=== PATIENT | female | born 1935 | race Asian ===

== ENCOUNTER 2018-11-13 20:11 | Inpatient (IN) | payer MEDICARE, BC ==
[~2018-11-13] VITALS: Ht 152.4 cm; Wt 36.3 kg
[2018-11-13] MEDS ORDERED: IV NORMAL SALINE 500 ML BAG IV ONE (20:15)
--- NOTE | 2018-11-13 20:30 | NUR ---
Patient bib pvt ambulance from [facility] for fever and weakness. Alert but nonverbal, verbalizes only when feeling pain. Respiratory even and unlabored, no cough no sob. No cardiovascular distress noted. Patient in bed at lowest position, sr upx2, call light within reach. Fall precautions implemented per protocol.
[2018-11-13 20:42] LABS: BASOPHILS % (AUTO) 0.3 % (0.0-2.0); EOSINOPHILS % (AUTO) 0.2 % (0.0-7.0); HEMATOCRIT 30.2 % (31.2-41.9); HEMOGLOBIN 10.2 g/dL (10.9-14.3); LYMPHOCYTES # (AUTO) 1.2 K/uL (20.0-40.0); LYMPHOCYTES % (AUTO) 13.1 % (20.5-51.5); MEAN CORPUSCULAR HEMOGLOBIN 30.4 uug (24.7-32.8); MEAN CORPUSCULAR HGB CONC 34 g/dL (32.3-35.6); MEAN CORPUSCULAR VOLUME 90.3 fL (75.5-95.3); MONOCYTES % (AUTO) 10.6 % (0.0-11.0); NEUTROPHILS # (AUTO) 6.9 K/uL (1.8-8.9); NEUTROPHILS % (AUTO) 75.8 % (38.5-71.5); PLATELET COUNT (AUTO) 235 K/uL (179-408); RED BLOOD CELL COUNT(AUTO) 3.35 MIL/uL (3.63-4.92); WHITE BLOOD COUNT (AUTO) 9.1 K/uL (3.8-11.8)
[2018-11-13 20:49] LABS: ALANINE AMINOTRANSFERASE 9 U/L (14-59); ALKALINE PHOSPHATASE 105 U/L (50-136); ASPARTATE AMINOTRANSFERASE 16 U/L (15-37); BILIRUBIN,DIRECT 0.4 mg/dL (0.0-0.2); BILIRUBIN,TOTAL 0.6 mg/dL (0.2-1.0); CARBON DIOXIDE 22 mmol/L (21-32); CHLORIDE 121 mmol/L (98-107); CREATININE 2.9 mg/dL (0.6-1.3); GLUCOSE 113 mg/dL (74-106); TOTAL PROTEIN, SERUM 7.9 g/dL (6.4-8.2); UREA NITROGEN, BLOOD 71 mg/dL (7-18)
[2018-11-13 20:57] LABS: *BILIRUBIN,URIN 1+ (NEGATIVE); *BLOOD, URINE 2+ (NEGATIVE); *CLARITY,URINE CLOUDY (CLEAR); *KETONES,URINE TRACE (NEGATIVE); LEUKOCYTE ESTERASE ,URINE 2+ (NEGATIVE); NITRITE, URINE NEGATIVE (NEGATIVE); PH,URINE 5.5 (5.0-8.0); UGLUCOSE NEGATIVE (NEGATIVE)
[2018-11-13 21:05] LABS: *COLOR,URINE YELLOW (YELLOW)
[2018-11-13 21:10] LABS: WBC,URINE 80-100 /HPF (0-3)
[2018-11-13 21:11] LABS: MUCUS,URINE MODERATE /LPF (0-FEW); SQUAMOUS EPITHELIAL CELL,UR MODERATE /HPF (NONE SEEN); URINE AMORPHOUS URATE MODERATE /HPF
[2018-11-13 21:18] LABS: BAND % (MANUAL) 7 % (0-10); LYMPHOCYTES % (MANUAL) 15 % (20-40); MONOCYTES % (MANUAL) 10 % (2-10); NEUTROPHILS % (MANUAL) 68 % (42-75)
[2018-11-13] MEDS ORDERED: CEFTRIAXONE 1 G in IV DEXTROSE 5% 50 ML IV ONE (21:30)
[2018-11-13] MEDS ORDERED: CEFTRIAXONE 1 G VIAL ONE (21:33)
[2018-11-13] MEDS ORDERED: LORA10TA7 PO (21:35)
[2018-11-13] MEDS ORDERED: ACET-73 PO (21:35)
[2018-11-13] MEDS ORDERED: LISI40TA4 PO (21:35)
[2018-11-13] MEDS ORDERED: INSU100V11 SUBCUT (21:35)
[2018-11-13] MEDS ORDERED: ASPI-605 PO (21:35)
[2018-11-13] MEDS ORDERED: DONE10TA44 PO (21:35)
[2018-11-13] MEDS ORDERED: UBIQUINOL PO (21:35)
[2018-11-13] MEDS ORDERED: [UNRECOGNIZED DRUG - OTHER] PO (21:35)
[2018-11-13] MEDS ORDERED: B-COMPLEX PO (21:35)
[2018-11-13] MEDS ORDERED: GEMF600T5 PO (21:35)
[2018-11-13] MEDS ORDERED: AMLO5TAB9 PO (21:35)
[2018-11-13] MEDS ORDERED: [UNRECOGNIZED DRUG - MIXTURE] PO (21:35)
[2018-11-13] MEDS ORDERED: METF-440 PO (21:35)
[2018-11-13] MEDS ORDERED: GINSENG PO (21:35)
[2018-11-13] MEDS ORDERED: [UNRECOGNIZED DRUG - OTHER] PO (21:35)
[2018-11-13] MEDS ORDERED: [UNRECOGNIZED DRUG - OTHER] PO (21:35)
--- NOTE | 2018-11-13 22:20 | NUR ---
Report given to BRANDON Brand.
--- NOTE | 2018-11-13 22:25 | NUR ---
PATIENT RECEIVED VIA GURNEY BY ER. ACCOMPNIED BY DAUGHTER . PATIENT IS SLEEPING AT THIS TIME. IV SITE ON RIGHT HAND , INTACT AND PATENT .VS STABLE, SKIN CHECK DONE, NOTED WITH REDNESS IN SACRAL AREA, TOOK PICTURE AND PLACED IN CHART, PLACED MEPILEX. PATIENT IS UNABLE TO VERBALIZE MEDICAL HISTORY DUE TO DEMNTIA, PER DAUGHTER IS SOMETIMES NON VERBAL. FALL PRECAUTION OBSERVED, BED ALARM ON , BED IN LOCK POSITION, WITH SIDE RAILS UP X 2. BELONGINGS LIST CHECKD AND PLACED IN CHART, ORIENTED TO ROOM, BUT UNABLE TO COMPREHEND. CALL LIGHT WITHIN REACH. PATIENT IS IN NO APPARENT DISTRESS.
--- NOTE | 2018-11-13 22:29 | NUR ---
Patient transported to [place] in stable condition.
[2018-11-13 23:08] VITALS: BP 118/53
[2018-11-14 05:23] VITALS: BP 109/45
[2018-11-14 06:44] LABS: BASOPHILS % (AUTO) 0.3 % (0.0-2.0); EOSINOPHILS % (AUTO) 0.4 % (0.0-7.0); HEMATOCRIT 27.9 % (31.2-41.9); HEMOGLOBIN 9.3 g/dL (10.9-14.3); LYMPHOCYTES % (AUTO) 11.7 % (20.5-51.5); MEAN CORPUSCULAR HEMOGLOBIN 30.7 uug (24.7-32.8); MEAN CORPUSCULAR HGB CONC 34 g/dL (32.3-35.6); MEAN CORPUSCULAR VOLUME 91.7 fL (75.5-95.3); MONOCYTES # (AUTO) 0.8 K/uL (2.0-10.0); MONOCYTES % (AUTO) 10.1 % (0.0-11.0); NEUTROPHILS # (AUTO) 6.4 K/uL (1.8-8.9); NEUTROPHILS % (AUTO) 77.5 % (38.5-71.5); PLATELET COUNT (AUTO) 174 K/uL (179-408); RED BLOOD CELL COUNT(AUTO) 3.04 MIL/uL (3.63-4.92); WHITE BLOOD COUNT (AUTO) 8.3 K/uL (3.8-11.8)
[2018-11-14 06:48] LABS: CARBON DIOXIDE 19 mmol/L (21-32); CHLORIDE 123 mmol/L (98-107); CREATININE 2.3 mg/dL (0.6-1.3); GLUCOSE 85 mg/dL (74-106); POTASSIUM 4.6 mmol/L (3.5-5.1); UREA NITROGEN, BLOOD 65 mg/dL (7-18)
--- NOTE | 2018-11-14 07:00 | NUR ---
PATIENT SLEPT WELL LAST NIGHT, FALL PREUATIONS OBSERVED , BED ALARM ON, BED LOCKED IN POSITION, SIDE RAILS UP. VS STABLE REMAINS AFEBRILE. IV PATNET AND INTACT. PATIENT IS IN NO DISTRESS AT THIS TIME. LAB CALLED REGARDING [facility] CALLED MD GONZALEZ @0617 , AWAITING CALL BACK ENDORSED TO AM SHIFT.
--- NOTE | 2018-11-14 07:15 | NUR ---
patient in Bed, Alert and Oriented x 1, No signs of Respiratory distress noted. No SOB. No complain of Pain or Discomfort noted. kept the call light within easy reach. kept the bed in lowest position. Will continue to monitor.
--- NOTE | 2018-11-14 08:00 | NUR ---
0900 Called [facility] Nephrology, Spoke with Alison and relayed Elevated Sodium level of 157, she said she will page Dr. Wall, awaiting for Call back.
[2018-11-14] MEDS ORDERED: METFORMIN HCL 500 MG TABLET PO SCH (09:15)
[2018-11-14] MEDS ORDERED: LORATADINE 10 MG TABLET PO SCH (09:15)
[2018-11-14] MEDS ORDERED: ACETAMINOPHEN ES 500 MG TABLET PO PRN ×2 (09:15→11:30)
[2018-11-14] MEDS ORDERED: INSULIN LISPRO 300 UNIT/3 ML VIAL SQ PRN (09:15)
[2018-11-14] MEDS ORDERED: DONEPEZIL 10 MG TABLET PO SCH (09:15)
[2018-11-14] MEDS ORDERED: LISINOPRIL 20 MG TABLET PO SCH (09:15)
[2018-11-14] MEDS: ASPIRIN EC 81 MG TABLET.DR PO SCH (09:36)
[2018-11-14] MEDS: AMLODIPINE 5 MG TABLET PO SCH (09:37)
[2018-11-14] MEDS: GEMFIBROZIL 600 MG TABLET PO SCH ×2 (09:37→17:05)
[2018-11-14] MEDS ORDERED: IV 1/2NS 1000 ML 1,000 ML IV ONE (11:15)
[2018-11-14] MEDS ORDERED: DEXTROSE 50% 50 ML DISP.SYRIN IV PRN (11:15)
[2018-11-14 11:26] VITALS: BP 124/46
[2018-11-14] MEDS: BLOOD SUGAR DIAGNOSTIC 1 EACH STRIP VI SCH ×3 (12:17→20:27)
[2018-11-14] MEDS: DONEPEZIL 10 MG TABLET PO SCH (12:24)
[2018-11-14] MEDS ORDERED: [UNRECOGNIZED DRUG - OTHER] PO SCH (13:00)
[2018-11-14 15:09] VITALS: BP 109/45
[2018-11-14] MEDS: INSULIN REGULAR, HUMAN 300 UNIT/3 ML VIAL SQ PRN ×2 (17:19→20:30)
--- NOTE | 2018-11-14 18:33 | NUR ---
Patient in Bed, awake and verbally responsive. No signs of Respiratory distress noted. No SOB. No complain of Pain or Discomfort. ON IVF 0.45% Nacl running at 100cc/hr. Right hand IV site intact. No signs of Infiltration noted. All needs attended and met. No signs of Hyper/hypoglycemia. Will endorse to Oncoming Nurse.
--- NOTE | 2018-11-14 19:47 | NUR ---
Received asleep in bed, arousable. Not in any form of distress. No complaints at the moment. Noted with IV access on the right hand to ongoing IV fluid, infusing well. Noted DVT pumps in place. Bed in low position, locked, side rails up x2 for safety, bed alarm on. Noise and lights subdued. Will continue to monitor.
[2018-11-14 20:00] VITALS: BP 125/54
[2018-11-14] MEDS: VITAMIN B COMPLEX 1 TABLET PO SCH (20:27)
[2018-11-14] MEDS ORDERED: CEFTRIAXONE 1 G in IV DEXTROSE 5% 50 ML IV SCH (21:00)
[2018-11-14] MEDS ORDERED: Z GUARD REMEDY PASTE 57 GM TUBE TOP PRN (21:45)
--- NOTE | 2018-11-14 23:09 | NUR ---
Noted IV fluid order is 1/2NS1L at 100mls/hr ONCE, called and spoke with Dr. Sheets to verify if IV fluids should be continued or not. Per Dr. Sheets, hold for now and verify in the morning with vp of digital marketing if they want to continue the IV fluids.
[2018-11-15 05:03] VITALS: BP 131/61
--- NOTE | 2018-11-15 05:36 | NUR ---
Patient slept intermittently throughout the night, no complaints were made, no distress noted. Attended all needs. Ensured safety and comfort. Noted patient legally blind, both eyes. Ordered air mattress for patient. DVT pumps maintained. Will endorse to morning shift nurse to follow up regarding patient IV fluids.
[2018-11-15] MEDS: BLOOD SUGAR DIAGNOSTIC 1 EACH STRIP VI SCH ×4 (06:31→20:53)
[2018-11-15 06:40] LABS: CARBON DIOXIDE 21 mmol/L (21-32); CHLORIDE 120 mmol/L (98-107); CREATININE 1.6 mg/dL (0.6-1.3); GLUCOSE 102 mg/dL (74-106); MAGNESIUM 2.1 mg/dL (1.8-2.4); UREA NITROGEN, BLOOD 41 mg/dL (7-18)
[2018-11-15 06:51] LABS: EOSINOPHILS # (AUTO) 0.1 K/uL (0.0-0.7); EOSINOPHILS % (AUTO) 0.9 % (0.0-7.0); LYMPHOCYTES % (AUTO) 8.3 % (20.5-51.5); MEAN CORPUSCULAR HEMOGLOBIN 30.9 uug (24.7-32.8); MONOCYTES # (AUTO) 0.6 K/uL (2.0-10.0); WHITE BLOOD COUNT (AUTO) 10.2 K/uL (3.8-11.8)
[2018-11-15 07:01] LABS: BASOPHILS % (AUTO) 0.2 % (0.0-2.0); LYMPHOCYTES # (AUTO) 0.8 K/uL (20.0-40.0); MEAN CORPUSCULAR HGB CONC 33 g/dL (32.3-35.6); MEAN CORPUSCULAR VOLUME 93.5 fL (75.5-95.3); MONOCYTES % (AUTO) 5.6 % (0.0-11.0); NEUTROPHILS # (AUTO) 8.6 K/uL (1.8-8.9); PLATELET COUNT (AUTO) 198 K/uL (179-408); RED BLOOD CELL COUNT(AUTO) 3.28 MIL/uL (3.63-4.92)
[2018-11-15 07:03] LABS: HEMATOCRIT 30.7 % (31.2-41.9); HEMOGLOBIN 10.2 g/dL (10.9-14.3)
--- NOTE | 2018-11-15 07:15 | NUR ---
Patient in bed, awake and responsive. No signs of respiratory distress noted. No SOB. No complain of Pain or discomfort. kept the call light within reach.All needs attended and met. Will continue to monitor.
[2018-11-15] MEDS: GEMFIBROZIL 600 MG TABLET PO SCH ×2 (08:22→17:17)
[2018-11-15] MEDS: DONEPEZIL 10 MG TABLET PO SCH (08:22)
[2018-11-15] MEDS: ASPIRIN EC 81 MG TABLET.DR PO SCH (08:22)
[2018-11-15] MEDS: AMLODIPINE 5 MG TABLET PO SCH (08:22)
[2018-11-15] MEDS ORDERED: [UNRECOGNIZED DRUG - MIXTURE] PO SCH (09:00)
[2018-11-15] MEDS ORDERED: [UNRECOGNIZED DRUG - OTHER] PO SCH (09:00)
[2018-11-15] MEDS ORDERED: UBIQUINOL PO SCH (09:00)
[2018-11-15] MEDS ORDERED: GINSENG PO SCH (09:00)
[2018-11-15] MEDS ORDERED: [UNRECOGNIZED DRUG - OTHER] PO SCH (09:00)
[2018-11-15] MEDS ORDERED: LORATADINE 10 MG TABLET PO SCH (09:00)
[2018-11-15] MEDS ORDERED: IV 1/2NS 1000 ML 1,000 ML IV ONE (11:30)
[2018-11-15] MEDS ORDERED: LEVOFLOXACIN 250MG /D5W 250 MG in PREMIXED 1 EACH IV SCH ×2 (11:30→12:00)
[2018-11-15 12:01] VITALS: BP 103/40
[2018-11-15] MEDS: INSULIN REGULAR, HUMAN 300 UNIT/3 ML VIAL SQ PRN ×2 (12:18→20:55)
[2018-11-15 15:33] VITALS: BP 126/46
--- NOTE | 2018-11-15 18:23 | NUR ---
Patient in bed, awake and responsive. No signs of respiratory distress noted. No SOB. No complain of Pain or discomfort. IVF infusing well at Right hand, No signs of Infiltration noted. kept clean and comfortable. kept the call light within easy reach. Will Endorse to oncoming Nurse.
--- NOTE | 2018-11-15 19:40 | NUR ---
Received patient awake in bed. Not in any form of distress. No complaints at the moment. Noted IV access on right hand, infiltrated, removed. Noted air mattress in place. Noted DVT pumps in place. Bed in low position, locked, side rails up x2 for safety, bed alarm on. Noise and lights subdued. Will continue to monitor.
[2018-11-15 19:51] VITALS: BP 140/50
[2018-11-15] MEDS: VITAMIN B COMPLEX 1 TABLET PO SCH (20:53)
[2018-11-16 05:20] VITALS: BP 155/64
--- NOTE | 2018-11-16 05:34 | NUR ---
Patient slept intermittently throughout the night, no complaints were made, no distress noted. Attended all needs. Ensured safety and comfort. Noted patient legally blind, both eyes. Still with air mattress and DVT pumps in place. Noted with plans to discharge patient this AM.
[2018-11-16] MEDS: BLOOD SUGAR DIAGNOSTIC 1 EACH STRIP VI SCH ×3 (06:38→16:19)
--- NOTE | 2018-11-16 07:15 | NUR ---
Patient in Bed, awake and verbally responsive. No signs of Distress noted. No complain of Pain or Discomfort. Left FA IV site Intact. No signs of Infiltration noted. kept the call light within easy reach. will continue to monitor.
[2018-11-16 07:17] LABS: CREATININE 1.1 mg/dL (0.6-1.3); MAGNESIUM 1.7 mg/dL (1.8-2.4); PHOSPHOROUS 2.4 mg/dL (2.5-4.9); POTASSIUM 3.6 mmol/L (3.5-5.1)
[2018-11-16 07:26] LABS: BASOPHILS % (AUTO) 0.2 % (0.0-2.0); EOSINOPHILS # (AUTO) 0.1 K/uL (0.0-0.7); EOSINOPHILS % (AUTO) 0.6 % (0.0-7.0); HEMATOCRIT 31.6 % (31.2-41.9); HEMOGLOBIN 10.4 g/dL (10.9-14.3); LYMPHOCYTES # (AUTO) 0.8 K/uL (20.0-40.0); LYMPHOCYTES % (AUTO) 8.1 % (20.5-51.5); MEAN CORPUSCULAR HEMOGLOBIN 30.7 uug (24.7-32.8); MEAN CORPUSCULAR HGB CONC 33 g/dL (32.3-35.6); MEAN CORPUSCULAR VOLUME 92.9 fL (75.5-95.3); MONOCYTES # (AUTO) 0.6 K/uL (2.0-10.0); MONOCYTES % (AUTO) 5.5 % (0.0-11.0); NEUTROPHILS # (AUTO) 8.7 K/uL (1.8-8.9); NEUTROPHILS % (AUTO) 85.6 % (38.5-71.5); PLATELET COUNT (AUTO) 187 K/uL (179-408); WHITE BLOOD COUNT (AUTO) 10.2 K/uL (3.8-11.8)
[2018-11-16] MEDS: DONEPEZIL 10 MG TABLET PO SCH (08:35)
[2018-11-16] MEDS: ASPIRIN EC 81 MG TABLET.DR PO SCH (08:36)
[2018-11-16] MEDS: GEMFIBROZIL 600 MG TABLET PO SCH (08:36)
[2018-11-16] MEDS: AMLODIPINE 5 MG TABLET PO SCH (08:36)
[2018-11-16] MEDS ORDERED: MAGNESIUM OXIDE 400 MG TABLET PO ONE (11:00)
[2018-11-16 11:04] VITALS: BP 146/59
[2018-11-16 11:21] VITALS: BP 115/58
[2018-11-16] MEDS ORDERED: LEVO500T2 PO (14:28)
--- NOTE | 2018-11-16 14:56 | NUR ---
Patient with New order to be discharge to ARU, RP daughter made aware.
[2018-11-16 16:09] VITALS: BP 118/51
[2018-11-16] MEDS ORDERED: NEUTRA PHOS PACKET PO ONE (16:15)
--- NOTE | 2018-11-16 16:45 | NUR ---
Patient in bed Awake and responsive. No signs of Respiratory distress noted. No SOB. No complain of Pain or Discomfort. Blood sugar is 156 at 1630, Supplement Neutra Phos 2 packet was given for Phos of 2.4 and magnesium 800mg with Mg 1.7 level. Called ARU and gave report to yvan, All belongings was sent to patient. Discharged patient to ARU at room 106 at 1645
== END 2018-11-16 16:45 | DRG 682 ==
LOC: ER 20:11 → MEDSURG3 22:18
PROVIDERS: ADMIT Internal Medicine Nephrology; ATTEND Internal Medicine Nephrology
DX: N17.9 Acute kidney failure, unspecified (principal); G92 Toxic encephalopathy; N39.0 Urinary tract infection, site not specified; E87.0 Hyperosmolality and hypernatremia; E86.0 Dehydration; G30.9 Alzheimer's disease, unspecified; F02.80 Dementia in other diseases classified elsewhere, unspecified severity, without behavioral disturbance, psychotic disturbance, mood disturbance, and anxiety; H54.7 Unspecified visual loss; E11.9 Type 2 diabetes mellitus without complications; I25.10 Atherosclerotic heart disease of native coronary artery without angina pectoris; Z95.1 Presence of aortocoronary bypass graft; E78.5 Hyperlipidemia, unspecified; Z66 Do not resuscitate
CPT/HCPCS: 36415; 70030-TC; 71045; 83605; 83735; 84100; 85025; 85730; 87040; 87077; 87086; 93005; A4663; C1758; G0378; J0696; J1815; J1956; J3490; J7030; J7060

== ENCOUNTER 2018-11-16 16:54 | Inpatient (IN) | payer MEDICARE, BC ==
[~2018-11-16] VITALS: Ht 152.4 cm; Wt 36.3 kg
[~2018-11-16 16:54] MED LIST: ACET-73 PO; AMLO5TAB9 PO; ASPI-605 PO; B-COMPLEX PO; DONE10TA44 PO; GEMF600T5 PO; GINSENG PO; INSU100V11 SUBCUT; LEVO500T2 PO; LISI40TA4 PO; LORA10TA7 PO; METF-440 PO; UBIQUINOL PO; [UNRECOGNIZED DRUG - MIXTURE] PO; [UNRECOGNIZED DRUG - OTHER] PO; [UNRECOGNIZED DRUG - OTHER] PO; [UNRECOGNIZED DRUG - OTHER] PO
[2018-11-16] MEDS ORDERED: Z GUARD REMEDY PASTE 57 GM TUBE TOP PRN (17:15)
[2018-11-16 19:54] VITALS: BP 129/72
[2018-11-17 05:58] VITALS: BP 137/57
[2018-11-17 08:01] VITALS: BP 128/57
[2018-11-17] MEDS ORDERED: LEVOFLOXACIN 500 MG TABLET PO SCH (10:15)
[2018-11-17] MEDS ORDERED: LORATADINE 10 MG TABLET PO SCH (10:33)
[2018-11-17] MEDS ORDERED: DEXTROSE 50% 50 ML DISP.SYRIN IV PRN (10:45)
[2018-11-17] MEDS: BLOOD SUGAR DIAGNOSTIC 1 EACH STRIP VI SCH ×3 (11:33→22:44)
[2018-11-17] MEDS: LEVOFLOXACIN 250 MG TABLET PO SCH (11:36)
[2018-11-17] MEDS: INSULIN REGULAR, HUMAN 300 UNIT/3 ML VIAL SQ PRN ×3 (11:52→22:46)
[2018-11-17 16:48] VITALS: BP 130/54
[2018-11-17] MEDS: ACETAMINOPHEN ES 500 MG TABLET PO PRN (16:48)
[2018-11-17] MEDS ORDERED: METFORMIN HCL 500 MG TABLET PO SCH (18:00)
[2018-11-17] MEDS: GEMFIBROZIL 600 MG TABLET PO SCH (18:27)
[2018-11-17 19:36] VITALS: BP 135/59
[2018-11-18 05:53] VITALS: BP 130/53
[2018-11-18] MEDS: BLOOD SUGAR DIAGNOSTIC 1 EACH STRIP VI SCH ×4 (06:53→21:11)
[2018-11-18 08:09] VITALS: BP 119/55
[2018-11-18] MEDS: AMLODIPINE 5 MG TABLET PO SCH (09:00)
[2018-11-18] MEDS: DONEPEZIL 10 MG TABLET PO SCH (10:15)
[2018-11-18] MEDS: GEMFIBROZIL 600 MG TABLET PO SCH ×2 (10:15→17:06)
[2018-11-18] MEDS: LEVOFLOXACIN 250 MG TABLET PO SCH (10:16)
[2018-11-18] MEDS: ASPIRIN EC 81 MG TABLET.DR PO SCH (10:16)
[2018-11-18] MEDS: INSULIN REGULAR, HUMAN 300 UNIT/3 ML VIAL SQ PRN ×3 (12:38→21:12)
[2018-11-18 15:59] VITALS: BP 115/59
[2018-11-18 20:06] VITALS: BP 125/67
[2018-11-19 04:57] VITALS: BP 125/60
[2018-11-19] MEDS: BLOOD SUGAR DIAGNOSTIC 1 EACH STRIP VI SCH ×4 (06:40→20:44)
[2018-11-19 08:01] VITALS: BP 114/50
[2018-11-19] MEDS: DONEPEZIL 10 MG TABLET PO SCH (08:56)
[2018-11-19] MEDS: GEMFIBROZIL 600 MG TABLET PO SCH ×2 (08:56→17:58)
[2018-11-19] MEDS: ASPIRIN EC 81 MG TABLET.DR PO SCH (08:56)
[2018-11-19] MEDS: LEVOFLOXACIN 250 MG TABLET PO SCH (08:56)
[2018-11-19] MEDS: AMLODIPINE 5 MG TABLET PO SCH (08:56)
[2018-11-19] MEDS: INSULIN REGULAR, HUMAN 300 UNIT/3 ML VIAL SQ PRN ×3 (11:48→20:45)
[2018-11-19 16:20] VITALS: BP 113/50
[2018-11-19 20:56] VITALS: BP 121/53
[2018-11-20 05:13] VITALS: BP 135/55
[2018-11-20] MEDS: BLOOD SUGAR DIAGNOSTIC 1 EACH STRIP VI SCH ×4 (06:34→20:40)
[2018-11-20] MEDS: AMLODIPINE 5 MG TABLET PO SCH (09:30)
[2018-11-20] MEDS: GEMFIBROZIL 600 MG TABLET PO SCH ×2 (09:31→17:20)
[2018-11-20] MEDS: DONEPEZIL 10 MG TABLET PO SCH (09:31)
[2018-11-20] MEDS: ASPIRIN EC 81 MG TABLET.DR PO SCH (09:31)
[2018-11-20 09:34] VITALS: BP 114/43
[2018-11-20] MEDS: INSULIN REGULAR, HUMAN 300 UNIT/3 ML VIAL SQ PRN ×3 (12:33→20:51)
[2018-11-20 16:12] VITALS: BP 109/40
[2018-11-20 19:58] VITALS: BP 127/55
[2018-11-21 04:55] VITALS: BP 130/50
[2018-11-21] MEDS: BLOOD SUGAR DIAGNOSTIC 1 EACH STRIP VI SCH ×4 (06:34→21:14)
[2018-11-21 07:45] LABS: BASOPHILS % (AUTO) 0.4 % (0.0-2.0); EOSINOPHILS # (AUTO) 0.1 K/uL (0.0-0.7); EOSINOPHILS % (AUTO) 2.4 % (0.0-7.0); HEMATOCRIT 24.6 % (31.2-41.9); HEMOGLOBIN 8.4 g/dL (10.9-14.3); LYMPHOCYTES # (AUTO) 0.9 K/uL (20.0-40.0); LYMPHOCYTES % (AUTO) 14.8 % (20.5-51.5); MEAN CORPUSCULAR HEMOGLOBIN 31.3 uug (24.7-32.8); MEAN CORPUSCULAR HGB CONC 34 g/dL (32.3-35.6); MEAN CORPUSCULAR VOLUME 91.6 fL (75.5-95.3); MONOCYTES # (AUTO) 0.4 K/uL (2.0-10.0); MONOCYTES % (AUTO) 5.9 % (0.0-11.0); NEUTROPHILS # (AUTO) 4.7 K/uL (1.8-8.9); NEUTROPHILS % (AUTO) 76.5 % (38.5-71.5); PLATELET COUNT (AUTO) 245 K/uL (179-408); RED BLOOD CELL COUNT(AUTO) 2.69 MIL/uL (3.63-4.92); WHITE BLOOD COUNT (AUTO) 6.1 K/uL (3.8-11.8)
[2018-11-21 07:47] LABS: ALANINE AMINOTRANSFERASE < 6 U/L (14-59); ALKALINE PHOSPHATASE 82 U/L (50-136); ASPARTATE AMINOTRANSFERASE 17 U/L (15-37); BILIRUBIN,TOTAL 0.3 mg/dL (0.2-1.0); CARBON DIOXIDE 24 mmol/L (21-32); CHLORIDE 111 mmol/L (98-107); CREATININE 0.9 mg/dL (0.6-1.3); GLUCOSE 87 mg/dL (74-106); MAGNESIUM 1.8 mg/dL (1.8-2.4); PHOSPHOROUS 2.9 mg/dL (2.5-4.9); POTASSIUM 4.6 mmol/L (3.5-5.1); UREA NITROGEN, BLOOD 22 mg/dL (7-18)
[2018-11-21 08:43] VITALS: BP 129/53
[2018-11-21] MEDS: AMLODIPINE 5 MG TABLET PO SCH (09:15)
[2018-11-21] MEDS: DONEPEZIL 10 MG TABLET PO SCH (09:16)
[2018-11-21] MEDS: ASPIRIN 81 MG TAB.CHEW PO SCH (09:16)
[2018-11-21] MEDS: GEMFIBROZIL 600 MG TABLET PO SCH ×2 (09:17→17:09)
[2018-11-21] MEDS: LORATADINE 10 MG TABLET PO SCH (09:17)
[2018-11-21] MEDS: INSULIN REGULAR, HUMAN 300 UNIT/3 ML VIAL SQ PRN ×2 (11:55→17:09)
[2018-11-21 16:44] VITALS: BP 120/63
[2018-11-21 19:39] VITALS: BP 128/57
[2018-11-22 04:55] VITALS: BP 120/67
[2018-11-22] MEDS: BLOOD SUGAR DIAGNOSTIC 1 EACH STRIP VI SCH ×4 (06:09→21:41)
[2018-11-22 07:30] VITALS: BP 137/53
[2018-11-22] MEDS: GEMFIBROZIL 600 MG TABLET PO SCH ×2 (08:12→17:08)
[2018-11-22] MEDS: DONEPEZIL 10 MG TABLET PO SCH (08:13)
[2018-11-22] MEDS: ASPIRIN 81 MG TAB.CHEW PO SCH (08:13)
[2018-11-22] MEDS: AMLODIPINE 5 MG TABLET PO SCH (08:14)
[2018-11-22 09:08] LABS: BASOPHILS % (AUTO) 0.3 % (0.0-2.0); EOSINOPHILS # (AUTO) 0.1 K/uL (0.0-0.7); EOSINOPHILS % (AUTO) 1.5 % (0.0-7.0); LYMPHOCYTES # (AUTO) 0.8 K/uL (20.0-40.0); LYMPHOCYTES % (AUTO) 13.7 % (20.5-51.5); MEAN CORPUSCULAR HEMOGLOBIN 30.8 uug (24.7-32.8); MEAN CORPUSCULAR HGB CONC 34 g/dL (32.3-35.6); MEAN CORPUSCULAR VOLUME 91.5 fL (75.5-95.3); MONOCYTES # (AUTO) 0.4 K/uL (2.0-10.0); MONOCYTES % (AUTO) 7.1 % (0.0-11.0); NEUTROPHILS # (AUTO) 4.4 K/uL (1.8-8.9); NEUTROPHILS % (AUTO) 77.4 % (38.5-71.5); PLATELET COUNT (AUTO) 293 K/uL (179-408); WHITE BLOOD COUNT (AUTO) 5.7 K/uL (3.8-11.8)
[2018-11-22 09:14] LABS: IRON, SERUM 36 ug/dL (50-175)
[2018-11-22 09:21] LABS: HEMOGLOBIN 9.3 g/dL (10.9-14.3)
[2018-11-22 09:22] LABS: HEMATOCRIT 27.5 % (31.2-41.9)
[2018-11-22 09:37] LABS: FERRITIN 217 ng/mL (8-252)
[2018-11-22] MEDS: INSULIN REGULAR, HUMAN 300 UNIT/3 ML VIAL SQ PRN (11:54)
[2018-11-22 16:05] VITALS: BP 141/57
[2018-11-22 20:18] VITALS: BP 141/57
[2018-11-23 04:51] VITALS: BP 161/53
[2018-11-23] MEDS: BLOOD SUGAR DIAGNOSTIC 1 EACH STRIP VI SCH ×4 (06:54→20:15)
[2018-11-23 08:05] VITALS: BP 134/57
[2018-11-23] MEDS: DONEPEZIL 10 MG TABLET PO SCH (09:19)
[2018-11-23] MEDS: GEMFIBROZIL 600 MG TABLET PO SCH ×2 (09:19→17:48)
[2018-11-23] MEDS: LORATADINE 10 MG TABLET PO SCH (09:20)
[2018-11-23] MEDS: ASPIRIN 81 MG TAB.CHEW PO SCH (09:20)
[2018-11-23] MEDS: AMLODIPINE 5 MG TABLET PO SCH (09:21)
[2018-11-23] MEDS: INSULIN REGULAR, HUMAN 300 UNIT/3 ML VIAL SQ PRN ×2 (12:15→20:19)
[2018-11-23 15:54] VITALS: BP 138/60
[2018-11-23] MEDS: ACETAMINOPHEN ES 500 MG TABLET PO PRN (20:14)
[2018-11-23 21:08] VITALS: BP 135/57
[2018-11-24 04:56] VITALS: BP 147/49
[2018-11-24] MEDS: BLOOD SUGAR DIAGNOSTIC 1 EACH STRIP VI SCH ×4 (06:38→20:27)
[2018-11-24 08:00] VITALS: BP 137/49
[2018-11-24] MEDS: AMLODIPINE 5 MG TABLET PO SCH (08:33)
[2018-11-24] MEDS: DONEPEZIL 10 MG TABLET PO SCH (08:33)
[2018-11-24] MEDS: ASPIRIN 81 MG TAB.CHEW PO SCH (08:33)
[2018-11-24] MEDS: GEMFIBROZIL 600 MG TABLET PO SCH ×2 (08:34→17:21)
[2018-11-24] MEDS: INSULIN REGULAR, HUMAN 300 UNIT/3 ML VIAL SQ PRN ×3 (11:56→20:29)
[2018-11-24 20:02] VITALS: BP 134/57
[2018-11-24] MEDS: ACETAMINOPHEN ES 500 MG TABLET PO PRN (20:34)
[2018-11-25 05:01] VITALS: BP 154/44
[2018-11-25] MEDS: BLOOD SUGAR DIAGNOSTIC 1 EACH STRIP VI SCH ×4 (06:10→20:36)
[2018-11-25 07:30] VITALS: BP 144/54
[2018-11-25] MEDS: AMLODIPINE 5 MG TABLET PO SCH (10:26)
[2018-11-25] MEDS: DONEPEZIL 10 MG TABLET PO SCH (10:26)
[2018-11-25] MEDS: GEMFIBROZIL 600 MG TABLET PO SCH ×2 (10:26→17:42)
[2018-11-25] MEDS: LORATADINE 10 MG TABLET PO SCH (10:26)
[2018-11-25] MEDS: ASPIRIN 81 MG TAB.CHEW PO SCH (10:27)
[2018-11-25] MEDS: INSULIN REGULAR, HUMAN 300 UNIT/3 ML VIAL SQ PRN ×2 (12:26→20:39)
[2018-11-25 16:58] VITALS: BP 132/51
[2018-11-25 18:58] LABS: *OCCULT BLOOD STOOL NEGATIVE (NEGATIVE)
[2018-11-25 20:05] VITALS: BP 133/58
[2018-11-26 05:15] VITALS: BP 135/65
[2018-11-26] MEDS: BLOOD SUGAR DIAGNOSTIC 1 EACH STRIP VI SCH ×4 (06:33→20:36)
[2018-11-26 07:30] VITALS: BP 119/56
[2018-11-26] MEDS: GEMFIBROZIL 600 MG TABLET PO SCH ×2 (09:51→17:41)
[2018-11-26] MEDS: AMLODIPINE 5 MG TABLET PO SCH (09:51)
[2018-11-26] MEDS: ASPIRIN 81 MG TAB.CHEW PO SCH (09:51)
[2018-11-26] MEDS: DONEPEZIL 10 MG TABLET PO SCH (09:51)
[2018-11-26] MEDS: INSULIN REGULAR, HUMAN 300 UNIT/3 ML VIAL SQ PRN ×2 (12:45→20:37)
[2018-11-26 16:00] VITALS: BP 113/59
[2018-11-26 19:43] VITALS: BP 119/55
[2018-11-26] MEDS: ACETAMINOPHEN ES 500 MG TABLET PO PRN (20:38)
[2018-11-26 22:32] LABS: *OCCULT BLOOD STOOL NEGATIVE (NEGATIVE)
[2018-11-27 04:50] VITALS: BP 149/54
[2018-11-27] MEDS: BLOOD SUGAR DIAGNOSTIC 1 EACH STRIP VI SCH ×4 (06:33→20:17)
[2018-11-27 08:59] VITALS: BP 152/55
[2018-11-27] MEDS: DONEPEZIL 10 MG TABLET PO SCH (09:41)
[2018-11-27] MEDS: ASPIRIN 81 MG TAB.CHEW PO SCH (09:41)
[2018-11-27] MEDS: AMLODIPINE 5 MG TABLET PO SCH (09:41)
[2018-11-27] MEDS: LORATADINE 10 MG TABLET PO SCH (09:42)
[2018-11-27] MEDS: GEMFIBROZIL 600 MG TABLET PO SCH ×2 (09:42→17:34)
[2018-11-27] MEDS: INSULIN REGULAR, HUMAN 300 UNIT/3 ML VIAL SQ PRN ×3 (12:21→20:20)
[2018-11-27 16:07] VITALS: BP 123/53
[2018-11-27] MEDS: ACETAMINOPHEN ES 500 MG TABLET PO PRN (20:18)
[2018-11-27 21:06] VITALS: BP 123/60
[2018-11-28 05:13] VITALS: BP 136/66
[2018-11-28] MEDS: BLOOD SUGAR DIAGNOSTIC 1 EACH STRIP VI SCH ×4 (06:35→21:31)
[2018-11-28 07:05] LABS: BASOPHILS % (AUTO) 1.2 % (0.0-2.0); EOSINOPHILS # (AUTO) 0.1 K/uL (0.0-0.7); EOSINOPHILS % (AUTO) 2.4 % (0.0-7.0); HEMATOCRIT 25.8 % (31.2-41.9); HEMOGLOBIN 8.7 g/dL (10.9-14.3); LYMPHOCYTES # (AUTO) 0.9 K/uL (20.0-40.0); LYMPHOCYTES % (AUTO) 28.6 % (20.5-51.5); MEAN CORPUSCULAR HEMOGLOBIN 30.6 uug (24.7-32.8); MEAN CORPUSCULAR HGB CONC 34 g/dL (32.3-35.6); MEAN CORPUSCULAR VOLUME 90.6 fL (75.5-95.3); MONOCYTES # (AUTO) 0.3 K/uL (2.0-10.0); MONOCYTES % (AUTO) 8.2 % (0.0-11.0); NEUTROPHILS % (AUTO) 59.6 % (38.5-71.5); PLATELET COUNT (AUTO) 193 K/uL (179-408); RED BLOOD CELL COUNT(AUTO) 2.84 MIL/uL (3.63-4.92); WHITE BLOOD COUNT (AUTO) 3.3 K/uL (3.8-11.8)
[2018-11-28 07:16] LABS: CARBON DIOXIDE 20 mmol/L (21-32); CHLORIDE 107 mmol/L (98-107); CREATININE 0.8 mg/dL (0.6-1.3); GLUCOSE 102 mg/dL (74-106); PHOSPHOROUS 3.4 mg/dL (2.5-4.9); POTASSIUM 4.4 mmol/L (3.5-5.1); UREA NITROGEN, BLOOD 22 mg/dL (7-18)
[2018-11-28] MEDS: DONEPEZIL 10 MG TABLET PO SCH (09:55)
[2018-11-28] MEDS: GEMFIBROZIL 600 MG TABLET PO SCH ×2 (09:55→16:59)
[2018-11-28] MEDS: ASPIRIN 81 MG TAB.CHEW PO SCH (09:55)
[2018-11-28] MEDS: AMLODIPINE 5 MG TABLET PO SCH (09:57)
[2018-11-28 19:06] VITALS: BP 125/48
[2018-11-28] MEDS: ACETAMINOPHEN ES 500 MG TABLET PO PRN (21:16)
[2018-11-28] MEDS: INSULIN REGULAR, HUMAN 300 UNIT/3 ML VIAL SQ PRN (21:19)
[2018-11-28 22:07] VITALS: BP 129/59
[2018-11-29 04:20] VITALS: BP 138/55
[2018-11-29] MEDS: BLOOD SUGAR DIAGNOSTIC 1 EACH STRIP VI SCH ×4 (06:40→20:20)
[2018-11-29 07:30] VITALS: BP 119/56
[2018-11-29] MEDS: ASPIRIN 81 MG TAB.CHEW PO SCH (09:17)
[2018-11-29] MEDS: DONEPEZIL 10 MG TABLET PO SCH (09:17)
[2018-11-29] MEDS: GEMFIBROZIL 600 MG TABLET PO SCH ×2 (09:18→18:25)
[2018-11-29] MEDS: LORATADINE 10 MG TABLET PO SCH (09:18)
[2018-11-29] MEDS: AMLODIPINE 5 MG TABLET PO SCH (09:18)
[2018-11-29 16:45] VITALS: BP 133/54
[2018-11-29 20:30] VITALS: BP 122/60
[2018-11-30 06:12] VITALS: BP 121/60
[2018-11-30] MEDS: BLOOD SUGAR DIAGNOSTIC 1 EACH STRIP VI SCH ×4 (06:42→20:29)
[2018-11-30] MEDS: DONEPEZIL 10 MG TABLET PO SCH (08:47)
[2018-11-30] MEDS: AMLODIPINE 5 MG TABLET PO SCH (08:47)
[2018-11-30] MEDS: GEMFIBROZIL 600 MG TABLET PO SCH ×2 (08:48→17:19)
[2018-11-30] MEDS: ASPIRIN 81 MG TAB.CHEW PO SCH (08:49)
[2018-11-30 09:11] VITALS: BP 134/68
[2018-11-30 17:06] VITALS: BP 117/46
[2018-11-30 19:57] VITALS: BP 127/49
[2018-11-30] MEDS: ACETAMINOPHEN ES 500 MG TABLET PO PRN (21:30)
[2018-12-01 07:18] VITALS: BP 125/47
[2018-12-01] MEDS: BLOOD SUGAR DIAGNOSTIC 1 EACH STRIP VI SCH ×2 (07:24→11:50)
[2018-12-01] MEDS: DONEPEZIL 10 MG TABLET PO SCH (08:38)
[2018-12-01] MEDS: ASPIRIN 81 MG TAB.CHEW PO SCH (08:39)
[2018-12-01] MEDS: LORATADINE 10 MG TABLET PO SCH (08:39)
[2018-12-01] MEDS: AMLODIPINE 5 MG TABLET PO SCH (08:39)
[2018-12-01] MEDS: GEMFIBROZIL 600 MG TABLET PO SCH (08:40)
[2018-12-01 09:43] LABS: BASOPHILS % (AUTO) 0.5 % (0.0-2.0); EOSINOPHILS # (AUTO) 0.1 K/uL (0.0-0.7); EOSINOPHILS % (AUTO) 0.9 % (0.0-7.0); HEMATOCRIT 27.4 % (31.2-41.9); HEMOGLOBIN 9.4 g/dL (10.9-14.3); LYMPHOCYTES # (AUTO) 1.2 K/uL (20.0-40.0); LYMPHOCYTES % (AUTO) 14.1 % (20.5-51.5); MEAN CORPUSCULAR HGB CONC 34 g/dL (32.3-35.6); MEAN CORPUSCULAR VOLUME 90.7 fL (75.5-95.3); MONOCYTES # (AUTO) 0.3 K/uL (2.0-10.0); NEUTROPHILS # (AUTO) 6.7 K/uL (1.8-8.9); NEUTROPHILS % (AUTO) 80.5 % (38.5-71.5); PLATELET COUNT (AUTO) 240 K/uL (179-408); RED BLOOD CELL COUNT(AUTO) 3.02 MIL/uL (3.63-4.92); WHITE BLOOD COUNT (AUTO) 8.3 K/uL (3.8-11.8)
[2018-12-01 09:46] VITALS: BP 133/46
[2018-12-01 09:55] LABS: BILIRUBIN,TOTAL 0.4 mg/dL (0.2-1.0); CREATININE 0.7 mg/dL (0.6-1.3); MAGNESIUM 1.9 mg/dL (1.8-2.4); TOTAL PROTEIN, SERUM 7.8 g/dL (6.4-8.2)
== END 2018-12-01 16:30 | disposition home health service (06) | DRG 689 ==
PROVIDERS: ADMIT Physical Medicine & Rehabilitation Pain Medicine; ATTEND Physical Medicine & Rehabilitation Pain Medicine
DX: N39.0 Urinary tract infection, site not specified (principal); G92 Toxic encephalopathy; E43 Unspecified severe protein-calorie malnutrition; N17.9 Acute kidney failure, unspecified; Z68.1 Body mass index [BMI] 19.9 or less, adult; R13.10 Dysphagia, unspecified; E87.8 Other disorders of electrolyte and fluid balance, not elsewhere classified; E11.9 Type 2 diabetes mellitus without complications; E78.5 Hyperlipidemia, unspecified; F02.80 Dementia in other diseases classified elsewhere, unspecified severity, without behavioral disturbance, psychotic disturbance, mood disturbance, and anxiety; G30.9 Alzheimer's disease, unspecified; H54.7 Unspecified visual loss; I25.10 Atherosclerotic heart disease of native coronary artery without angina pectoris; Z95.1 Presence of aortocoronary bypass graft; I10 Essential (primary) hypertension; D64.9 Anemia, unspecified; Z79.84 Long term (current) use of oral hypoglycemic drugs
CPT/HCPCS: 36415; 83550; 83735; 84100; 85025; A9150; J1815